=== PATIENT | male | born 2000 | race Caucasian/White ===

== ENCOUNTER 2022-06-23 01:23 | Inpatient (IN) | payer BC, MEDICAID ==
[~2022-06-23] VITALS: Ht 175.3 cm; Wt 100.9 kg
[2022-06-23] MEDS ORDERED: ESTR1TAB SL (01:38)
[2022-06-23] MEDS ORDERED: SPIR50TA4 PO (01:38)
[2022-06-23] MEDS ORDERED: LEXA1TAB PO (01:38)
[2022-06-23 02:37] LABS: HEMATOCRIT 46.6 % (42.0-52.0); HEMOGLOBIN 15.9 g/dl (13.5-17.5); MEAN CORPUSCULAR HEMOGLOBIN 30.8 pg (27.0-33.0); MEAN CORPUSCULAR HGB CONC 34.1 g/dl (32.0-36.5); MEAN CORPUSCULAR VOLUME 90.1 fl (80.0-96.0); PLATELET COUNT, AUTOMATED 294 10^3/uL (150-450); RED BLOOD COUNT 5.17 10^6/uL (4.30-6.10); WHITE BLOOD COUNT 10.3 10^3/uL (4.0-10.0)
[2022-06-23 02:49] LABS: AMPHETAMINES LEVEL URINE NEGATIVE (NEGATIVE); BARBITURATES URINE NEGATIVE (NEGATIVE); BENZODIAZEPINES URINE NEGATIVE (NEGATIVE); COCAINE METABOLITE URINE NEGATIVE (NEGATIVE); METHADONE URINE NEGATIVE (NEGATIVE); OPIATES URINE NEGATIVE (NEGATIVE); PHENCYCLIDINE URINE NEGATIVE (NEGATIVE)
[2022-06-23 03:05] LABS: ETHYL ALCOHOL (ETHANOL) < 0.003 % (0.000-0.010)
[2022-06-23 03:06] LABS: SALICYLATE LEVEL < 3.0 MG/DL (<30)
[2022-06-23 03:07] LABS: ACETAMINOPHEN LEVEL < 2.0 UG/ML (10.0-20.0); CANNABINOIDS URINE POSITIVE (NEGATIVE)
[2022-06-23 03:47] LABS: ALBUMIN 4.4 G/DL (3.2-5.2); ALKALINE PHOSPHATASE 85 U/L (46-116); ALT/SGPT 31 U/L (7.0-40); AST/SGOT 22 U/L (<34); BILIRUBIN,DIRECT 0.2 MG/DL (<0.4); BILIRUBIN,TOTAL 0.7 MG/DL (0.3-1.2); BLOOD UREA NITROGEN 13 MG/DL (9-23); CALCIUM LEVEL 9.3 MG/DL (8.5-10.1); CARBON DIOXIDE LEVEL 28 MMOL/L (20-31); CHLORIDE LEVEL 106 MMOL/L (98-107); CREATININE FOR GFR 0.85 MG/DL (0.70-1.30); GLUCOSE, FASTING 96 MG/DL (60-100); SODIUM LEVEL 142 MMOL/L (136-145); THYROID STIMULATING HORMONE 6.148 uIU/ML (0.48-4.17)
[2022-06-23 04:01] LABS: TOTAL PROTEIN 7.6 G/DL (5.7-8.2)
[2022-06-23] MEDS ORDERED: NICOTINE 14 MG/24 HR TRANSDERMAL TD SCH (09:00)
[2022-06-23] MEDS: estradioL 1 MG TAB XX SCH ×2 (09:00→20:02)
[2022-06-23] MEDS: SPIRONOLACTONE 50 MG TAB PO SCH ×2 (09:00→20:02)
[2022-06-23] MEDS ORDERED: HOME MED LIST COMPLETE! XX SCH (12:20)
[2022-06-23] MEDS ORDERED: OLANZapine 5 MG TAB PO PRN (12:25)
[2022-06-23] MEDS ORDERED: diphenhydrAMINE 25MG CAP PO PRN (12:25)
[2022-06-23] MEDS ORDERED: MAALOX 30 ML SUSP *UDC PO PRN (12:25)
[2022-06-23] MEDS ORDERED: IBUPROFEN 400MG TAB PO PRN (12:25)
[2022-06-23] MEDS ORDERED: traZODone 50 MG TAB PO PRN (12:25)
[2022-06-23] MEDS ORDERED: MOM 30ML SUSPENSION UDC PO PRN (12:25)
[2022-06-23 16:09] VITALS: BP 148/75
[2022-06-23] MEDS: ESCITALOPRAM OXALATE 10 MG TAB (LEXAPRO) PO SCH (19:07)
[2022-06-24 06:38] VITALS: BP 117/71
[2022-06-24] MEDS: estradioL 1 MG TAB XX SCH (09:09)
[2022-06-24] MEDS: ESCITALOPRAM OXALATE 10 MG TAB (LEXAPRO) PO SCH (09:09)
[2022-06-24] MEDS: SPIRONOLACTONE 50 MG TAB PO SCH ×2 (09:09→21:49)
[2022-06-24 10:07] LABS: INR 0.96; PARTIAL THROMBOPLASTIN TIME 27.1 SECONDS (24.8-34.2)
[2022-06-24] MEDS: RIVAROXABAN 10MG TAB (XARELTO) PO SCH (17:37)
[2022-06-24 18:20] VITALS: BP 141/85
[2022-06-24] MEDS: estradioL 1 MG TAB SL SCH (21:49)
[2022-06-25 06:37] VITALS: BP 156/87
[2022-06-25] MEDS: estradioL 1 MG TAB SL SCH ×2 (08:33→21:20)
[2022-06-25] MEDS: ESCITALOPRAM OXALATE 10 MG TAB (LEXAPRO) PO SCH (08:33)
[2022-06-25] MEDS: SPIRONOLACTONE 50 MG TAB PO SCH ×2 (08:33→21:20)
[2022-06-25 16:30] VITALS: BP 140/88
[2022-06-25] MEDS: RIVAROXABAN 10MG TAB (XARELTO) PO SCH (18:01)
[2022-06-26 06:28] VITALS: BP 155/84
[2022-06-26] MEDS: estradioL 1 MG TAB SL SCH ×2 (07:40→21:26)
[2022-06-26] MEDS: ESCITALOPRAM OXALATE 10 MG TAB (LEXAPRO) PO SCH (07:41)
[2022-06-26] MEDS: SPIRONOLACTONE 50 MG TAB PO SCH ×2 (07:41→21:26)
[2022-06-26 16:36] VITALS: BP 133/94
[2022-06-26] MEDS: RIVAROXABAN 10MG TAB (XARELTO) PO SCH (18:02)
[2022-06-27 06:24] VITALS: BP 147/84
[2022-06-27] MEDS: ESCITALOPRAM OXALATE 10 MG TAB (LEXAPRO) PO SCH (09:05)
[2022-06-27] MEDS: estradioL 1 MG TAB SL SCH ×2 (09:06→21:19)
[2022-06-27] MEDS: SPIRONOLACTONE 50 MG TAB PO SCH ×2 (09:06→21:19)
[2022-06-27] MEDS: RIVAROXABAN 10MG TAB (XARELTO) PO SCH (18:40)
[2022-06-28] MEDS: SPIRONOLACTONE 50 MG TAB PO SCH (09:45)
[2022-06-28] MEDS: estradioL 1 MG TAB SL SCH (09:45)
[2022-06-28] MEDS: ESCITALOPRAM OXALATE 10 MG TAB (LEXAPRO) PO SCH (09:45)
[2022-06-28] MEDS ORDERED: LEXA1TAB2 PO (10:04)
== END 2022-06-28 11:05 | disposition home or self-care (01) | DRG 751 ==
LOC: M ED 01:23 → M ED INP 12:23 → M PSY 16:02
PROVIDERS: ADMIT Psychiatry & Neurology Psychiatry; ATTEND Student in an Organized Health Care Education/Training Program
DX: F33.1 Major depressive disorder, recurrent, moderate (principal); R45.851 Suicidal ideations; F41.9 Anxiety disorder, unspecified; F64.8 Other gender identity disorders; F43.20 Adjustment disorder, unspecified; Z79.899 Other long term (current) drug therapy; F12.90 Cannabis use, unspecified, uncomplicated